=== PATIENT | female | born 1970 | race Caucasian/White ===

== ENCOUNTER 2024-11-28 11:09 | Outpatient (CLI) | payer OTHER, SELFPAY ==
--- OUTSIDE RECORDS SUMMARY | 2024-11-27 11:24 | XMS_ITS | Encounter Summary ---
Author Organization [facility] Address [address] [place] [address] Care Team Providers Care Oracle Manufacturing Consultant Name Role Phone Vel Araujo DO Unavailable [phone] Domo Izquierdo MD Primary Care Provider [phone] Reason for Referral * Radiology Services (Routine) - Closed Specialty Diagnoses / Procedures Referred By Contac t Referred To Contact Mammography Diagnoses Encounter for screening mammogram for malignant neoplasm of breast Procedures Mammo Bilat Screening W Domo Martinez MD [address] [place] [address] Phone: tel: fax: [facility] [address] [place] [address] Phone: tel: fax: Referral ID Status Reason Start Date Expiration Date Visits Re quested Visits Authorized [id number] Closed 11/20/2024 11/20/2025 1 1 Reason for Visit * Radiology Services (Routine) - Closed Specialty Diagnoses / Procedures Referred By Contac t Referred To Contact Mammography Diagnoses Encounter for screening mammogram for malignant neoplasm of breast Procedures Mammo Bilat Screening W Domo Martinez MD [address] [place] [address] Phone: tel: fax: [facility] [address] [place] [address] Phone: tel: fax: Referral ID Status Reason Start Date Expiration Date Visits Re quested Visits Authorized [id number] Closed 11/20/2024 11/20/2025 1 1 Encounter Details Date Type Department Care Team (Latest Contact Info) Description 11/27/2024 11:24 AM CDT - 11/27/2024 11:59 PM CDT Hospital Encounter [address] [address] Domo Izquierdo MD [address] [place] [id number] Discharge Disposition: Home or Self Care Social History Tobacco Use Types Packs/Day Years Used Date Smoking Tobacco: Never Smokeless Tobacco: Never Alcohol Use Standard Drinks/Week Comments Yes 0 (1 standard drink = 0.6 oz pur e alcohol) occas. 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 Answer Date of Assessment Author No 11/01/2022 1:22 PM CDT Ivy Phipps RN * Is person blind or have serious difficulty seeing? Answer Date of Assessment Author No 11/01/2022 1:22 PM CDT Ivy Phipps RN * Does person have serious difficulty walking/climbing stairs? Answer Date of Assessment Author No 11/01/2022 1:22 PM SHEEBAT Ivy Phipps RN * Does person have difficulty dressing/bathing? Answer Date of Assessment Author No 11/01/2022 1:22 PM Ivy Montemayor RN * Does person have difficulty doing errands alone? Answer Date of Assessment Author No 11/01/2022 1:22 PM Ivy Montemayor RN documented as of this encounter Mental Status * Does person have difficulty concentrating/remembering/making decisions? Answer Entry Date Author No 11/01/2022 1:22 PM Ivy Montemayor RN documented in this encounter Medications at Time of Discharge citalopram (CeleXA) 20 MG tabletIndications :Current mild episode of major depressive disorder without prior episode,ROYA (generalized anxiety disorder) Take 1 (one) tablet by mouth once daily 90 tablet 1 05/20/2024 diazePAM (Valium) 5 MG tabletIndications :Anxiety with flying Take one tab about 1 hour prior to flight prn 12 tablet 10/09/2024 fluticasone propionate (FLONASE) 50 MCG/ACT nasal spray [place] 1 (one) spray into the nose as needed 09/20/2020 valACYclovir (Valtrex) 1 GM tablet 03/21/2024 documented as of this encounter Plan of Treatment Upcoming Encounters Date Type Department Care Team (Late st Contact Info) Description 12/28/2024 3:30 PM CDT Office Visit [facility] - Internal Med [address] [facility], [place] [address] Faisal Stewart MD [address] [place] [address] documented as of this encounter Procedures Procedure Name Priority Date/Time Associated Diagnosis Comments MAMMO BILAT SCREENING W DOTTIE Routine 11/27/2024 11:41 AM CDT Encounter for screening mammogram for malignant neoplasm of breast documented in this encounter Results * Mammo Bilat Screening W Dottie (11/27/2024 11:41 AM CDT) Anatomical Region Laterality Modality Breast Bilateral Mammography 11/27/2024 11:5 4 AM CDT Impressions 11/27/2024 11:57 AM CDT IMPRESSION: No mammographic evidence of malignancy. RECOMMENDATION: Screening mammography in one year, pending no interval breast concerns. Patient will receive the examination results by lay letter. OVERALL ASSESSMENT: BI-RADS CATEGORY 1: NEGATIVE. > Interpreting Provider: Micaela Bruner MD, FACR on 11/27/2024 11:57 AM Narrative 11/27/2024 11:57 AM CDT EXAMINATIONS: BILATERAL DIGITAL SCREENING MAMMOGRAM AND BILATERAL BREAST TOMOSYNTHESIS LOCATION: [facility] EXAM DATE: 11/27/2024 HISTORY: Screening. Family history of breast cancer in a paternal aunt at age 55. RISK ASSESSMENT CALCULATION: Patient completed a breast cancer risk assessment during their appointment 11/27/2024. Based upon the information provided and the mammographic breast density, their calculated lifetime risk of developing breast cancer is 11 % (Average Risk <15%; Intermediate / Moderate Risk 15-19; High Risk > 20%). Risk assessment based upon the BRCAPRO model. COMPARISON: Comparison is made to prior mammograms back to 2014. TECHNIQUE: Tomosynthesis (3D) and reconstructed synthetic 2-D images acquired and reviewed in the bilateral craniocaudal and mediolateral oblique projections. A total of 5 images obtained. Transpara AI was utilized in the interpretation. BREAST PARENCHYMAL COMPOSITION: Category B: There are scattered areas of fibroglandular density. FINDINGS: There are no suspicious findings or evidence of malignancy on mammography. There is no significant change from prior. Procedure Note Micaela Bruner MD - 11/27/2024 EXAMINATIONS: BILATERAL DIGITAL SCREENING MAMMOGRAM AND BILATERALBREAST TOMOSYNTHESIS LOCATION: [facility] EXAM DATE: 11/27/2024 HISTORY: Screening. Family history of breast cancer in a paternal auntat age 55. RISK ASSESSMENT CALCULATION: Patient completed a breast cancer risk assessment during their appointment 11/27/2024. Based upon theinformation provided and the mammographic breast density, their calculated lifetime risk of developing breast cancer is 11 % (Average Risk <15%;Intermediate / Moderate Risk 15-19; High Risk > 20%). Risk assessment based upon the BRCAPRO model. COMPARISON: Comparison is made to prior mammograms back to 2014. TECHNIQUE: Tomosynthesis (3D) and reconstructed synthetic 2-D images acquired and reviewed in the bilateral craniocaudal and mediolateral oblique projections. A total of 5 images obtained. Transpara AI was utilized in the interpretation. BREAST PARENCHYMAL COMPOSITION: Category B: There are scattered areas of fibroglandular density. FINDINGS: There are no suspicious findings or evidence of malignancy on mammography. There is no significant change from prior. IMPRESSION: No mammographic evidence of malignancy. RECOMMENDATION: Screening mammography in one year, pending no interval breast concerns. Patient will receive the examination results by lay letter. OVERALL ASSESSMENT: BI-RADS CATEGORY 1: NEGATIVE. > Interpreting Provider: Micaela Bruner MD, FACR on 11/27/2024 11:57 AM Domo Izquierdo MD MAMMO ORDERABLES Final Result documented in this encounter Visit Diagnoses Diagnosis Encounter for screening mammogram for malignant neoplasm of breast Other screening mammogram documented in this encounter Care Teams Oracle Manufacturing Consultant Relationship Specialty Start Date End Date Domo Izquierdo MD [address] [facility] MED [address] [place] [phone] PCP - General Internal Medicine 04/14/24 Vel Araujo DO [address] [facility] [place] [place] [address] Resident - PCP Internal Medicine 12/11/21 documented as of this encounter
--- OUTSIDE RECORDS SUMMARY | 2024-11-28 11:24 | XMS_ITS | Encounter Summary ---
Author Organization [facility] Address [address] [place] [address] Care Team Providers Care Telephone Lines Repairer Name Role Phone Pcp, Unknown Primary Care Provider Unavailabl e Unknown, Provider Primary Care Provider Unavaila Tatianna Barnes APRNFLOATING [facility] FOR CHILDREN Unavailable [phone] Salas Valdes MD Primary Care Provider [phone] Alisha Beck MD Primary Care Provider [phone] Vel Araujo DO Unavailable [phone] Domo Izquierdo MD Primary Care Provider [phone] Reason for Visit * Reason Onset Date Comments Appointment 07/07/2009 Patient was a no show for appointment. Left message. [facility] to reschedule. Encounter Details Date Type Department Care Team (Late st Contact Info) Description 07/07/2009 Telephone [facility] [employer] [facility] [address] [place] [address] [place] [address] [address] Appointment (Patient was a no show for appointment. Left message. [facility] to reschedule.) Social History Tobacco Use Types Packs/Day Years Used Date Smoking Tobacco: Never Alcohol Use Standard Drinks/Week Comments Yes 0 (1 standard drink = 0.6 oz pur e alcohol) occas. 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 Gender Identity Not on file Sexual Orientation Not on file documented as of this encounter Plan of Treatment Upcoming Encounters Date Type Department Care Team (Late st Contact Info) Description 12/28/2024 3:30 PM CDT Office Visit [facility] - Internal Med [address] [facility], [place] [address] Faisal Stewart MD [address] [place] [address] documented as of this encounter Visit Diagnoses Not on filedocumented in this encounter Care Teams Telephone Lines Repairer Relationship Specialty Start Date End Date Pcp, Unknown [place] [address] PCP - General 09/02/09 05/26/13 Unknown, Provider PCP - General 10/06/08 09/01/09 Tatianna Garrison APRN-FIBERGLASS CONTAINER WINDING OPERATOR [address] [address] PCP - Attributed-[employer] 04/04/19 11/23/19 Salas Valdes MD [address] [facility] [address] [place] [address] PCP - General 02/22/20 12/10/21 Alisha Beck MD [address] [place] [address]. [address] [place] [phone] PCP - General 12/11/21 04/13/24 Domo Izquierdo MD [address] [place] [address] DIV OF INT MED [address] [place] [phone] PCP - General Internal Medicine 04/14/24 Vel Araujo DO [address] [place] [address] [place] [address] Resident - PCP Internal Medicine 12/11/21 documented as of this encounter
--- OUTSIDE RECORDS SUMMARY | 2024-11-28 11:24 | XMS_ITS | Encounter Summary ---
Author Organization [facility] Address [address] [place] [place] [address] Care Team Providers Care Inspector [employer] Name Role Phone Vel Araujo DO Unavailable [phone] Domo Izquierdo MD Primary Care Provider Encounter Details Date Type Department Care Team (Latest Contact Info) Description 11/27/2024 Travel Social History Tobacco Use Types Packs/Day Years Used Date Smoking Tobacco: Never Smokeless Tobacco: Never Alcohol Use Standard Drinks/Week Comments Yes 0 (1 standard drink = 0.6 oz pur e alcohol) occas. 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 Answer Date of Assessment Author No 11/01/2022 1:22 PM Ivy Montemayor RN * Is person blind or have serious difficulty seeing? Answer Date of Assessment Author No 11/01/2022 1:22 PM Ivy Montemayor RN * Does person have serious difficulty walking/climbing stairs? Answer Date of Assessment Author No 11/01/2022 1:22 PM Ivy Montemayor RN * Does person have difficulty dressing/bathing? Answer Date of Assessment Author No 11/01/2022 1:22 PM CDT Ivy Phipps RN * Does person have difficulty doing errands alone? Answer Date of Assessment Author No 11/01/2022 1:22 PM SHEEBAT Ivy Phipps RN documented as of this encounter Mental Status * Does person have difficulty concentrating/remembering/making decisions? Answer Entry Date Author No 11/01/2022 1:22 PM Ivy Montemayor RN documented in this encounter Plan of Treatment Upcoming Encounters Date Type Department Care Team (Late st Contact Info) Description 12/28/2024 3:30 PM CDT Office Visit [facility] - Internal Med [address] [place] [address], [place] [phone] Faisal Stewart MD [address] [place] [address] documented as of this encounter Visit Diagnoses Not on filedocumented in this encounter Care Teams Inspector Canvas Products Relationship Specialty Start Date End Date Domo Izquierdo MD [address] [place] [address] OF INT MED [address] [place] [phone] PCP - General Internal Medicine 04/14/24 Vel Araujo DO [facility] [place] [address] Resident - PCP Internal Medicine 12/11/21 documented as of this encounter
--- OUTSIDE RECORDS SUMMARY | 2024-11-28 11:24 | XMS_ITS | Clinical Summary ---
Author Organization [facility] [employer] Address [address] [place] [address] Care Team Providers Care Track Surfacing Machine Operator Name Role Phone Vel Araujo DO Unavailable [phone] Domo Izquierdo MD Primary Care Provider [phone] Source Comments [facility] [employer],non-owned Affiliates and Associated Physician Practices is amultiple site organization consisting of ambulatory clinics and hospital sitesin [place], [place], [place] and [place]. This disclosure is being madepursuant to the Care Everywhere program and may not contain all information available regarding this patient. Last updated 17.[facility] [employer] Allergies No known active allergies Medications * Be aware that medications may not be up to date on this document. Alwaysverify current medications with the patient. fluticasone propionate (FLONASE) 50 MCG/ACT nasal spray [place] 1 (one) spray into the nose as needed 09/20/2020 Active valACYclovir (Valtrex) 1 GM tablet 03/21/2024 Active citalopram (CeleXA) 20 MG tabletIndication s:Current mild episode of major depressive disorder without prior episode,ROYA (generalized anxiety disorder) Take 1 (one) tablet by mouth once daily 90 tablet 1 05/20/2024 Active diazePAM (Valium) 5 MG tabletIndication s:Anxiety with flying Take one tab about 1 hour prior to flight prn 12 tablet 10/09/2024 Active Active Problems Problem Noted Date Diagnosed Date Wellness examination 05/20/2024 Need for vaccination 05/20/2024 Vitamin D deficiency 05/20/2024 Current mild episode of mehnaz r depressive disorder without prior episode 04/14/2024 ROYA (generalized anxiety disorder) 04/14/2024 Anxiety with flying 04/14/2024 Hx of laparoscopic gastric banding 09/27/2021 Hypertension 11/05/2008 Resolved Problems Problem Noted Date Diagnosed Date Resolved Date Actinic keratosis 09/14/2022 05/20/2024 Tinea pedis of both feet 09/14/2022 Nausea 11/05/2008 05/20/2024 Postoperative examination 11/05/2008 Morbid obesity 10/13/2008 05/20/2024 Overview (11/05/2008): S/p Gastric lap band. Preoperative examination 10/13/2008 Encounters Date Type Department Care Team Description 11/27/2024 11:24 AM CDT - 11/27/2024 11:59 PM CDT Hospital Encounter [facility] [address] [place] [id number] Domo Izquierdo MD Discharge Disposition: Home or Self Care 11/27/2024 Travel 10/09/2024 8:30 AM CDT Office Visit [facility] - [facility] [address] [place] [phone] Anxiety with flying (Primary Dx) 10/09/2024 Refill [facility] [address] [place] [phone] Magdalene Galloway, LAB AIDE-CHIP TESTER MEDICATION REFILL 10/09/2024 Travel 10/06/2024 Travel from Last 3 Months Immunizations Immunization Administration Dates Next Due INFLUENZA VACCINE 01/02/2021 INFLUENZA VACCINE, QUADR. (F LUZONE; FLULAVAL; FLUARIX; AFLURIA QUADRIVALENT; 6MO+), 0.5 ML (IIV4) 01/11/2022,02/19/2021 INFLUENZA VACCINE, TRIV. (FL UZONE; FLULAVAL; FLUARIX; AFLURIA TRIVALENT; 6MO+), 0.5 ML (IIV3) 05/20/2024 TDAP (7yrs+) 05/20/2024 Zoster Hzv Vacc Recombinant Inj Im 03/07/2022, iNFLUENZA VACCINE, RECOM-LAWSON, QUADR. (FLUBLOCK QUADRIVALENT; 18Y+) (RIV4) 01/17/2020 Family History Medical History Relation Name Comments Cancer - Breast Paternal Aunt CAD (Coronary Artery Disease) Paternal Grandfather CAD (Coronary Artery Disease) Paternal Grandmother Relation Name Status Comments Paternal Aunt Paternal Grandfather Paternal Grandmother Social History Tobacco Use Types Packs/Day Years Used Date Smoking Tobacco: Never Smokeless Tobacco: Never Tobacco Cessation:Counseling Given: Not Answered Alcohol Use Standard Drinks/Week Comments Yes 0 (1 standard drink = 0.6 oz pur e alcohol) occas. 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 Gender Identity Not on file Sexual Orientation Not on file Last Filed Vital Signs Vital Sign Reading Time Taken Comments Blood Pressure 141/101 10/09/2024 8:19 AM CDT Pulse 93 10/09/2024 8:19 AM CDT Temperature 36.8 C (98.2 F) 10/09/2024 8:19 AM CDT Respiratory Rate 16 05/01/2024 7:47 AM DRAWING TENDER Oxygen Saturation 99% 10/09/2024 8:19 AM CDT Inhaled Oxygen Concentration - - Weight 65.8 kg (145 lb) 11/27/2024 11:41 AM CDT Height 165.1 cm (5' 5) 11/27/2024 11:41 AM CDT Body Mass Index 24.13 11/27/2024 11:41 AM CDT Plan of Treatment Upcoming Encounters Date Type Department Care Team (Late st Contact Info) Description 12/28/2024 3:30 PM CDT Office Visit [facility] - Internal [facility] [address] [facility] [place] [address] Faisal Stewart MD [address] [place] [address] Health Maintenance Due Date Last Done Comments COLOGUARD (AGES 45-75) - COLON CA SCREENING 1970 CT COLONOGRAPHY - COLON CA SCREENING 1970 FIT - COLON CA SCREENING 1970 FLEX SIG - COLON CA SCREENING 1970 HEPATITIS B VACCINE (1 of 3 - 19+ 3-dose series) 1989 PNEUMOCOCCAL VACCINE 50+ (1 of 1 - PCV) 2020 COVID-19 VACCINE (3 - 2024- season) 2024 07/11/2020, 06/20/2020 INFLUENZA VACCINE (#1) 2024 , 01/11/2022, 02/19/2021, Additional history exists MAMMOGRAM 11/27/2026 11/27/2024, 09/01, 09/11/2022, Additional history exists LIPID TESTING 12/27/2026 12/27/2021, 10/20/2008 COLON MONITORING 11/01/2032 11/01/2022, 11/01/2022 COLONOSCOPY - COLON CA SCREENING 11/01/2032 11/01/2022, 11/01/2022 Colorectal Cancer Screening 11/01/2032 DTAP/TDAP/TD VACCINES (2 - Td or Tdap) 05/20/2034 05/20/2024 ZOSTER VACCINE Completed 03/07/2022, 09/27/2021 DEPRESSION SCREENING Completed 04/14/2024, 03/07/2022, 09/27/2021 HEPATITIS C SCREENING Discontinued HIB VACCINE Aged Out No longer eligi ble based on patient's age to complete this topic HIV SCREENING Discontinued HPV VACCINE Aged Out No longer eligi ble based on patient's age to complete this topic MENINGOCOCCAL (Group B) VACCINE SHARED DECISION-MAKING Aged Out No longer eligible based on patient's age to complete this topic MENINGOCOCCAL GROUPS A/C/Y/W VACCINE Aged Out No longer eligible based on patient's age to complete this topic PAP SMEAR Discontinued Procedures Procedure Name Priority Date/Time Associated Diagnosis Comments MAMMO BILAT SCREENING W DOTTIE Routine 11/27/2024 11:41 AM CDT Encounter for screening mammogram for malignant neoplasm of breast ENDOSCOPY, COLON, SCREENING Routine 11/01/2022 12:39 PM CDT LIPID PROFILE Routine 12/27/2021 4:04 PM CDT Preventative health care from Last 3 Months or Most Recently Relevant to Health Maintenance Results * Mammo Bilat Screening W Dottie [...] SCREENING MAMMOGRAM AND BILATERAL BREAST TOMOSYNTHESIS LOCATION: [facility] EXAM DATE: 11/27/2024 HISTORY: Screening. Family history [...] DIGITAL SCREENING MAMMOGRAM AND BILATERALBREAST TOMOSYNTHESIS LOCATION: [facility] EXAM DATE: 11/27/2024 HISTORY: Screening. Family history [...] Domo Izquierdo MD MAMMO ORDERABLES Final Result * ENDOSCOPY, COLON, SCREENING (11/01/2022 12:39 PM CDT) Report Endoscopy POC Endoscopy Department Report _ Patient Name: Nubia Garcia Procedure Date: 11/01/2022 12:39 PM Date of : 1970 Classification: Outpatient Gender: Female Ethnicity: Not or Race: White _ Providers: Eunice Suárez MD Referring MD: Alisha Beck (Referring MD) Procedure: Colonoscopy Indications: Screening for colorectal malignant neoplasm Medications: Propofol per Anesthesia Description of Procedure: Pre-Anesthesia Assessment: - Prior to the procedure, a History and Physical was performed, and patient medications and allergies were reviewed. The patient's tolerance of previous anesthesia was also reviewed. The risks and benefits of the procedure and the sedation options and risks were discussed with the patient. All questions were answered, and informed consent was obtained. Prior Anticoagulants: The patient has taken no anticoagulant or antiplatelet agents. ASA Grade Assessment: II - A patient with mild systemic disease. After reviewing the risks and benefits, the patient was deemed in satisfactory condition to undergo the procedure. After I obtained informed consent, the scope was passed under direct vision. Throughout the procedure, the patient's blood pressure, pulse, and oxygen saturations were monitored continuously. The Colonoscope was introduced through the anus and advanced to the cecum, identified by appendiceal orifice and ileocecal valve. The colonoscopy was performed with ease. The patient tolerated the procedure well. The quality of the bowel preparation was evaluated using the BBPS (Lincoln Bowel Preparation Scale) with scores of: Right Colon = 3, Transverse Colon = 3 and Left Colon = 3 (entire mucosa seen well with no residual staining, small fragments of stool or opaque liquid). The total BBPS score equals 9. The ileocecal valve, appendiceal orifice, and rectum were photographed. Findings: The perianal and digital rectal examinations were normal. Non-bleeding external hemorrhoids were found during retroflexion. The hemorrhoids were small. The exam was otherwise without abnormality on direct and retroflexion views. Estimated Blood Loss: Estimated blood loss: none. Complications: No immediate complications. Impression: - Non-bleeding external hemorrhoids. - The examination was otherwise normal on direct and retroflexion views. - No specimens collected. Recommendation: - Patient has a contact number available for emergencies. The signs and symptoms of potential delayed complications were discussed with the patient. Return to normal activities tomorrow. Written discharge instructions were provided to the patient. - High fiber diet for the rest of the patient's life. - Continue present medications. - Repeat colonoscopy in 10 years for screening purposes. - Return to primary care physician as previously scheduled. Attending Participation: I personally performed the entire procedure. Procedure Code(s): --- Professional --- G0121, Colorectal cancer screening; colonoscopy on individual not meeting criteria for high risk Diagnosis Code(s): --- Professional --- Z12.11, Encounter for screening for malignant neoplasm of colon K64.4, Residual hemorrhoidal skin tags CPT copyright 2021 [employer]. All rights reserved. The codes documented in this report are preliminary and upon analyst market intelligence review may be revised to meet current compliance requirements. Eunice Suárez MD 11/01/2022 1:12:46 PM Note Initiated On: 11/01/2022 12:39 PM Number of Addenda: [id number] [place] [address] PROVATION 11/01/2022 12:3 9 PM CDT us Eunice Suárez MD GI PROCEDURE ORDERABLES Ed ited Result - Final [facility] [employer]OV[facility] * (ABNORMAL) LIPID PROFILE (12/27/2021 4:04 PM CDT) Cholesterol Total 210(H) <200 mg/dL 12/27/2021 5:09 PM CDT [facility] HDL 78 >40 mg/dL 12/27/2021 5:09 PM CDT [facility] Comment: ATP III Classification of HDL Cholesterol: <40 mg/dL: Considered a major risk factor. >60 mg/dL: Considered a negative risk factor. LDL Calculated 107(H) <100 mg/dL 12/27/2021 5:09 PM T [facility] Comment: ATP III Classification of LDL Cholesterol: <100 mg/dL: Optimal 100 - 129 mg/dL: Near Optimal/Above Optimal 130 - 159 mg/dL: Borderline High 160 - 189 mg/dL: High >190 mg/dL: Very High Triglycerides 124 <150 mg/dL 12/27/2021 5:09 PM CDT [facility] Comment: ATP III Classification of Triglycerides: <150 mg/dL: Normal 150 - 199 mg/dL: Borderline High 200 - 400 mg/dL: High >500 mg/dL: Very High Blood BLOOD SPECIMEN / Unknown Lab Venipuncture / Unknown 12/27/2021 4:04 PM CDT 12/27/2021 4:35 PM CDT us Alisha Beck MD LAB - CHEMISTRY ORDERABLE S Final Result [facility] [address] [place] [address], [facility] [phone] from Last 3 Months or Most Recently Relevant to Health Maintenance Insurance [facility] Address: [address] [address] [employer] Advance Directives * Full Code (Latest Code Status on File) Date Activated Date Inactivated Comments 11/05/2008 11:23 AM 11/07/2008 2:27 AM Care Teams Track Surfacing Machine Operator Relationship Specialty Start Date End Date Domo Izquierdo MD [address] [phone] PCP - General Internal Medicine 04/14/24 Vel Araujo DO [address] [facility] [place] [id number] Resident - PCP Internal Medicine 12/11/21
[2024-11-28 12:40] LABS: Hematocrit 38.9 % (37.0-47.0); Hemoglobin 12.7 g/dL (12.0-15.0); Mean Corpuscular HGB Conc 32.6 g/dl (32-36); Mean Corpuscular Hemoglobin 30.7 pg (26-34); Mean Corpuscular Volume 94.0 fl (80-100); Platelet Count Result 237 k/mm3 (150-375); Red Blood Count 4.14 M/mm3 (4.2-5.4); White Blood Count 4.7 K/mm3 (4.5-10.0)
[2024-11-28 13:02] LABS: Albumin Level 4.6 g/dL (3.5-5.1); Anion Gap 7 mmol/L (4-12); Blood Urea Nitrogen 18 mg/dL (7-17); Calcium 9.7 mg/dL (8.4-10.2); Carbon Dioxide 29 mmol/L (22-30); Chloride 101 mmol/L (98-107); Estimated Glomerular Filt Rate 52; Glucose 84 mg/dL (65-110); Potassium 3.8 mmol/L (3.4-5.0); Sodium 137 mmol/L (137-145)
[2024-11-28 13:05] LABS: Iron 106 ug/dL (37-170)
[2024-11-28 13:10] LABS: Prealbumin 31.0 mg/dL (17.6-36.0)
[2024-12-01 18:08] LABS: Vit. B1, Whole Blood 109.3 nmol/L (66.5-200.0)
== END 2024-11-28 11:10 | disposition home or self-care (01) ==
PROVIDERS: Visit Provider Surgery Plastic and Reconstructive Surgery
DX: R63.4 Abnormal weight loss (principal)
CPT/HCPCS: 36415; 80048; 82040; 83540; 84134; 84425; 85027

== ENCOUNTER 2024-11-28 11:27 | Outpatient (CLI) | payer BC, SELFPAY ==
--- OUTSIDE RECORDS SUMMARY | 2001-07-29 09:45 | XMS_ITS | Continuity of Care Document ---
Author Organization [facility] Address [address] [place] [address] [place] [address] Phone Care Team Providers Care Income Tax Investigator Name Role Phone Clement Garber DO Unavailable Unavailable Advance Directives Directive Yes / No Effective Date File Name No Information Encounters Encounter Description Practice Location Reason(s) For Visit Diagnoses Date Provider Providers Copied on Encounter [facility], [address], [place], [place], [id number], [place] tel:[phone] [facility] No Information Jcarlos Hurley. [address] [facility], [place], [address], [place]. tel:[phone] Family History Family Member Type Diagnosis Age At Onset No Information Payers Payer name Insurance type Covered constitution party ID Authoriza tion(s) No Information Social History Type Description Quantity Date Captured Comments Sex Female Smoking Status No Information Chief Complaint And Reason For Visit No Information Reason For Referral Reason For Referral No Information History Of Present Illness Encounter Date Complaint History Of Prese nt Illness No Information Functional Status Date Functional Assessmen t No Information Instructions Date Instruction Additional Infor mation No Information Assessments Type Assessment Date No Information Patient Care Teams Name Effective Dates (start - stop) Status Members No Information
[2024-11-29 06:07] LABS: FSH 73.7 mIU/mL (.)
[2024-12-02 13:08] LABS: Free Testosterone (Direct) 0.7 pg/mL (0.0-4.2)
[2024-12-03 19:08] LABS: Estradiol, Sensitive 8.9 pg/mL (.)
== END 2024-11-28 11:28 | disposition home or self-care (01) ==
LOC: ANHLAB 11:32
PROVIDERS: Visit Provider Chiropractor
DX: N95.1 Menopausal and female climacteric states (principal); N95.8 Other specified menopausal and perimenopausal disorders
CPT/HCPCS: 82670; 83001; 84144; 84270; 84402; 84403

== ENCOUNTER 2025-02-19 11:31 | Outpatient (CLI) | payer OTHER, SELFPAY ==
--- NOTE | 2025-02-19 11:36 | ECG_ITS ---
Test Date: 2025-02-19 11:40:52 Measurements Intervals [place] Rate: 69 P: 52 NE: 145 QRS: 41 QRSD: 82 T: 28 QT: 389 QTc: 419 Interpretive Statements SINUS RHYTHM NORMAL ECG No previous ECG available for comparison Electronically Signed On 02-19-2025 11:51:34 CANAL LOCK TENDER CHIEF OPERATOR by Evan Warren D.O.
[2025-02-19 11:53] LABS: Hematocrit 39.0 % (37.0-47.0); Hemoglobin 12.9 g/dL (12.0-15.0)
--- OUTSIDE RECORDS SUMMARY | 2025-02-19 11:55 | XMS_ITS | Encounter Summary ---
Author Organization [facility] Address [address] [place] [address] Care Team Providers Care Furniture Designer Name Role Phone Pcp, Unknown Primary Care Provider Unavailabl e Unknown, Provider Primary Care Provider Unavaila Tatianna Barnes APRN-[facility] Unavailable [phone] Salas Valdes MD Primary Care Provider [phone] Alisha Beck MD Primary Care Provider [phone] Vel Araujo DO Unavailable [phone] Domo Izquierdo MD Primary Care Provider Faisal Stewart MD Primary Care Provider [phone] Isela Perez DO Unavailable [phone] Reason for Visit * Reason Onset Date Comments Appointment 07/07/2009 Patient was a no show for appointment. Left message. [facility] to reschedule. 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 Gender Identity Not on file Sexual Orientation Not on file documented as of this encounter Plan of Treatment Not on file documented as of this encounter Visit Diagnoses Not on filedocumented in this encounter Care Teams Furniture Designer Relationship Specialty Start Date End Date Pcp, Unknown [place] [address] PCP - General 09/02/09 05/26/13 Unknown, Provider PCP - General 10/06/08 09/01/09 Tatianna Garrison, MANAGED SECURITY SALES CONSULTANT-WHEEL LOADER OPERATOR [address] [address] PCP - Attributed-[employer] 04/04/19 11/23/19 Salas Valdes MD [address] [facility] [place] [phone] PCP - General 02/22/20 12/10/21 Alisha Beck MD [facility] [facility] [place] [phone] PCP - General 12/11/21 04/13/24 Domo Izquierdo MD [address] [address] PCP - General Internal Medicine 04/14/24 12/27/24 Faisal Stewart MD [address] [place] [address] PCP - General Internal Medicine 12/28/24 Vel Araujo DO [address] [facility] [place] [address] Resident - PCP Internal Medicine 12/11/21 Isela Perez DO [address] [facility] [place] [address] Physician Internal Medicine 12/28/24 documented as of this encounter
--- OUTSIDE RECORDS SUMMARY | 2025-02-19 11:55 | XMS_ITS | Clinical Summary ---
Author Organization [facility] [place] Address [address] [place] [address] Care Team Providers Care Candy Attendant Name Role Phone VanVel lynch DO Unavailable [phone] Faisal Stewart MD Primary Care Provider [phone] Isela Perez DO Unavailable [phone] Source Comments [facility],non-owned Affiliates and Associated Physician Practices is amultiple site organization consisting of ambulatory clinics and hospital sitesin [place], [place], [place] and [place]. This disclosure is being madepursuant to the Care Everywhere program and may not contain all information available regarding this patient. Last updated 17.[facility] [place] Allergies No known active allergies Medications * Be aware that medications may not be up to date on this document. Alwaysverify current medications with the patient. fluticasone propionate (FLONASE) 50 MCG/ACT nasal spray Veyo 1 (one) spray into the nose as needed 1 Active valACYclovir (Valtrex) 1 GM tablet 5 Active Progesterone 100 MG capsule TAKE 1 CAPSULE BY MOUTH EVERY DAY AT NIGHT 5 Active diazePAM (Valium) 5 MG tabletIndications :Anxiety with flying Take one tab about 1 hour prior to flight prn 12 tablet 5 Active senna (Senokot) 8.6 MG tabletIndications :Constipation, unspecified constipation type Take 1 (one) tablet by mouth at bedtime 60 tablet 4 5 Active citalopram (CeleXA) 20 MG tabletIndications :Current mild episode of major depressive disorder without prior episode,ROYA (generalized anxiety disorder) TAKE 1 TABLET BY MOUTH EVERY DAY 90 tablet 1 5 Active ferrous sulfate 325 (65 FE) MG tabletIndications :Iron Deficiency,Restle ss Leg Syndrome Take 1 (one) tablet by mouth daily with breakfast Reasons: Iron Deficiency, Restless Leg Syndrome 90 tablet 3 5 Active ascorbic acid (Vitamin C) 500 MG tabletIndications :Iron deficiency anemia, unspecified iron deficiency anemia type Take 1 (one) tablet by mouth once daily 90 tablet 5 Active Active Problems Problem Noted Date Diagnosed [...] Encounters Date Type Department Care Team Description 01/11/2025 Results Follow-Up [facility] - Internal Med [address] [place] [phone] Faisal Stewart MD 01/02/2025 Refill [facility] - Internal Med [address] [place] [address] Domo Izquierdo MD Refill Request 12/28/2024 4:33 PM CDT - 12/28/2024 11:59 PM CDT Hospital Encounter [facility] [address] [place] [phone] Discharge Disposition: Home or Self Care 12/28/2024 3:30 PM CDT Office Visit [facility] - Internal Med [address] [facility] [place] [address] Faisal Stewart MD Encounter to establish care with new doctor (Primary Dx); Anxiety with flying; Restless leg syndrome; Constipation, unspecified constipation type 12/28/2024 Travel 11/27/2024 11:24 AM CDT - 11/27/2024 11:59 PM CDT Hospital Encounter [facility] [address] [place] [address] Domo Izquierdo MD Discharge Disposition: Home or Self Care 11/27/2024 Travel from Last 3 Months Immunizations Immunization Administration Dates Next Due INFLUENZA VACCINE 01/15/2025,01/02/2021 INFLUENZA VACCINE, QUADR. (F LUZONE; FLULAVAL; FLUARIX; AFLURIA QUADRIVALENT; 6MO+), 0.5 ML (IIV4) 01/11/2022,02/19/2021 INFLUENZA VACCINE, TRIV. 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 Gender Identity Not on file Sexual Orientation Not on file Last Filed Vital Signs Vital Sign Reading Time Taken Comments Blood Pressure 132/85 12/28/2024 3:32 PM CDT Pulse 88 12/28/2024 3:32 PM CDT Temperature 36.6 C (97.8 F) 12/28/2024 3:32 PM CDT Respiratory Rate 16 05/01/2024 7:47 AM OPTICAL SCIENTIST Oxygen Saturation 97% 12/28/2024 3:32 PM CDT Inhaled Oxygen Concentration - - Weight 69.9 kg (154 lb) 12/28/2024 3:32 PM CDT Height 165.1 cm (5' 5) 12/28/2024 3:32 PM CDT Body Mass Index 25.63 12/28/2024 3:32 PM CDT Plan of Treatment Health Maintenance Due Date Last Done Comments COLOGUARD (AGES 45-75) - COLON CA SCREENING 1970 CT COLONOGRAPHY - COLON CA SCREENING 1970 FIT - COLON CA SCREENING 1970 FLEX SIG - COLON CA SCREENING 1970 HEPATITIS B VACCINE (1 of 3 - 19+ 3-dose series) 1989 COVID-19 VACCINE (2024- season) 2025 07/11/2020, 06/20/2020 Postponed from 11/02/2024 (Patient Refused) MAMMOGRAM 11/27/2026 11/27/2024, 09/01, 09/11/2022, Additional history exists SCREENING FOR DIABETES 12/29/2027 , 12/28/2024, 03/07/2022, Additional history exists LIPID TESTING 12/28/2029 12/28/2024, 12/03, 10/20/2008 COLON MONITORING 11/01/2032 11/01/2022, 11/01/2022 COLONOSCOPY - COLON CA SCREENING 11/01/2032 11/01/2022, 11/01/2022 Colorectal Cancer Screening 11/01/2032 DTAP/TDAP/TD VACCINES (2 - Td or Tdap) 05/20/2034 05/20/2024 ZOSTER VACCINE Completed 03/07/2022, 09/27/2021 DEPRESSION SCREENING Completed 04/14/2024, 03/07/2022, 09/27/2021 INFLUENZA VACCINE Completed 01/15/2025, , 01/11/2022, Additional history exists PNEUMOCOCCAL VACCINE 50+ Completed 01/15/2025 HEPATITIS C SCREENING Discontinued HIB VACCINE Aged [...] Procedure Name Priority Date/Time Associated Diagnosis Comments IRON + TRANSFERRIN PANEL Routine 12/28/2024 4:37 PM CDT Restless leg syndrome HEMOGLOBIN A1C Routine 12/28/2024 4:37 PM CDT Wellness examination Screening for diabetes mellitus LIPID PROFILE Routine 12/28/2024 4:37 PM CDT Wellness examination VITAMIN D 25-HYDROXY Routine 12/28/2024 4:37 PM CDT Wellness examination Vitamin D deficiency COMPREHENSIVE METABOLIC PANEL Routine 12/28/2024 4:37 PM CDT Wellness examination CBC W AUTO DIFFERENTIAL Routine 12/28/2024 4:37 PM CDT Wellness examination MAMMO BILAT SCREENING W PANTERA Routine 11/27/2024 11:41 AM CDT Encounter for screening mammogram for malignant neoplasm of breast ENDOSCOPY, COLON, SCREENING Routine 11/01/2022 12:39 PM CDT from Last 3 Months or Most Recently Relevant to Health Maintenance Results * HEMOGLOBIN A1C (12/28/2024 4:37 PM CDT) Hemoglobin A1c 4.9 <=5.6 % 12/29/2024 9:28 AM CDT [facility] Estimated Average Glucose 94 mg/dL 12/29/2024 9:28 AM CDT [facility] Comment: HbA1c Interpretation: Normal : < 5.7% Pre-diabetes: 5.7-6.4% Diabetes: Equal to or greater than 6.5% Test results diagnostic of diabetes should be repeated for confirmation. Treatment target values recommended by ADA and other clinical organizations should be used to evaluate metabolic control in patients. Reference: [place] [employer], Standards of Care in Diabetes -2020 In patients 70 years and older consider HbA1c target range of 7.0-7.5% (Reference: Fer Mahan et al. JAMDA. 2012) The Sebia assay for the measurement of HbA1c is a National Glycohemoglobin Standardization Program (NGSP) certified method. Blood BLOOD SPECIMEN / Unknown Lab Venipuncture / Unknown 12/28/2024 4:37 PM CDT 12/28/2024 5:43 PM CDT us Gage Fatima MD LAB - CHEMISTRY ORDERABLES Final Result [address] [address], [facility] [phone] * VITAMIN D 25-HYDROXY (12/28/2024 4:37 PM CDT) Vitamin D, 25 Hydroxy 43.7 30.0 - 80.0 ng/mL 12/28/2024 6:56 PM CDT [facility] Comment: The recommendations for 25-Hydroxy Vitamin D clinical decision points are as follows: Deficient: <20.0 ng/mL Insufficient: 20.0 - 29.9 ng/mL Sufficient: 30.0 - 100.0 ng/mL Potential Toxicity: >100 ng/mL Reference: The Endocrine Society Clinical Practice Guidelines. 2011 If the 25-Hydroxy Vitamin D results are inconsitent with clinical evidence, it is recommended that follow-up testing using a method such as LC/MS/MS be performed to confirm the result. Blood BLOOD SPECIMEN / Unknown Lab Venipuncture / Unknown 12/28/2024 4:37 PM CDT 12/28/2024 5:43 PM CDT us Gage Fatima MD LAB - CHEMISTRY ORDERABLES Final Result [facility] [address] [place] [address], [facility] [phone] * CBC W/ DIFFERENTIAL (12/28/2024 4:37 PM CDT) Pathologist [facility] WBC 6.9 4.0 - 10.7 x10E9/L 12/28/2024 5:47 PM CDT [facility] RBC Count 4.08 3.90 - 5.20 x10E12/L 12/28/2024 5:47 PM [facility] Hemoglobin 13.0 11.9 - 15.8 g/dL 12/28/2024 5:47 PM [facility] Hematocrit 38.2 34.8 - 46.1 % 12/28/2024 5:47 PM [facility] MCV 93.6 80.0 - 98.0 fL 12/28/2024 5:47 PM T [facility] MCH 31.9 26.7 - 33.6 pg 12/28/2024 5:47 PM [facility] MCHC 34.0 31.7 - 36.3 g/dL 12/28/2024 5:47 PM [facility] RDW-CV 13.1 11.3 - 14.8 % 12/28/2024 5:47 PM [facility] Platelet Count 243 150 - 420 x10E9/L 12/28/2024 5:47 PM T [facility] MPV 9.5 7.8 - 11.4 fL 12/28/2024 5:47 PM [facility] Neutrophil % 68.7 41.0 - 74.0 % 12/28/2024 5:47 PM [facility] Lymphocyte % 23.3 17.0 - 47.0 % 12/28/2024 5:47 PM T [facility] Monocyte % 6.1 3.0 - 11.0 % 12/28/2024 5:47 PM CDT [facility] Eosinophil % 0.6 0.0 - 7.0 % 12/28/2024 5:47 PM CDT [facility] Basophil % 1.0 0.0 - 1.6 % 12/28/2024 5:47 PM CDT [facility] Immature Granulocytes % 0.3 0.0 - 1.0 % 12/28/2024 5:47 PM CDT [facility] Neutrophil Absolute 4.76 1.60 - 7.50 x10E9/L 12/28/2024 5:47 PM CDT [facility] Lymphocyte Absolute 1.61 1.00 - 4.40 x10E9/L 12/28/2024 5:47 PM [facility] Monocyte Absolute 0.42 0.15 - 1.00 x10E9/L 12/28/2024 5:47 PM CDT [facility] Eosinophil Absolute 0.04 0.00 - 0.60 x10E9/L 12/28/2024 5:47 PM CDT [facility] Basophil Absolute 0.07 0.00 - 0.13 x10E9/L 12/28/2024 5:47 PM CDT [facility] Blood BLOOD SPECIMEN / Unknown Lab Venipuncture / Unknown 12/28/2024 4:37 PM CDT 12/28/2024 5:43 PM CDT us Gage Fatima MD LAB - HEMATOLOGY ORDERABLES Neeru l Result [facility] [address] [place] [address], [facility] [phone] * (ABNORMAL) COMPREHENSIVE METABOLIC PANEL (12/28/2024 4:37 PM CDT) BUN 18 7 - 26 mg/dL 12/28/2024 7:14 PM CDT [facility] Creatinine 0.86 0.56 - 0.96 mg/dL 12/28/2024 7:14 PM CDT [facility] Sodium 143 136 - 145 mmol/L 12/28/2024 7:14 PM [facility] Potassium 3.8 3.5 - 4.5 mmol/L 12/28/2024 7:14 PM [facility] Chloride 104 98 - 107 mmol/L 12/28/2024 7:14 PM [facility] CO2 28 22 - 29 mmol/L 12/28/2024 7:14 PM [facility] Glucose 90 70 - 99 mg/dL 12/28/2024 7:14 PM [facility] Calcium 9.9 8.4 - 10.2 mg/dL 12/28/2024 7:14 PM [facility] Protein Total 7.8 6.0 - 8.3 g/dL 12/28/2024 7:14 PM [facility] Albumin 4.9 3.4 - 5.0 g/dL 12/28/2024 7:14 PM [facility] Bilirubin Total 0.4 0.2 - 1.2 mg/dL 12/28/2024 7:14 PM [facility] Alkaline Phosphatase 62 40 - 150 U/L 12/28/2024 7:14 PM [facility] ALT 15 5 - 55 U/L 12/28/2024 7:14 PM [facility] AST 20 5 - 34 U/L 12/28/2024 7:14 PM [facility] Anion Gap 11 6 - 16 12/28/2024 7:14 PM [facility] BUN/Creatinine Ratio 21 7 - 23 12/28/2024 7:14 PM [facility] Osmolality Calculated 297(H) 275 - 295 mOsm/kg 12/28/2024 7:14 PM [facility] Albumin/Globulin Ratio 1.7 1.1 - 2.3 12/28/2024 7:14 PM [facility] eGFR by CKD-EPI 80(L) >=90 mL/min/1.7 3 m2 12/28/2024 7:14 PM [facility] Comment:Estimated Glomerular Filtration Rate (eGFR) calculated using the CKD-EPI Creatinine Equation (2020), per the National Kidney Foundation and [place] Society of Nephrology recommendations. Blood BLOOD SPECIMEN / Unknown Lab Venipuncture / Unknown 12/28/2024 4:37 PM CDT 12/28/2024 5:43 PM CDT Gage Fatima MD LAB - CHEMISTRY ORDERABLES Final Result Performing Organization Address City/[facility]/ZIP Co de Phone Number [address] [address], [place] [phone] * (ABNORMAL) IRON + TRANSFERRIN PANEL (12/28/2024 4:37 PM CDT) Pathologist [facility] Iron 64 40 - 150 ug/dL 12/28/2024 6:26 PM CDT [facility] Transferrin 413(H) 174 - 382 mg/dL 12/28/2024 6:26 PM CDT [facility] Transferrin Saturation % 12(L) 16 - 50 % 12/28/2024 6:26 PM CDT [facility] TIBC Calculated 516(H) 240 - 450 ug/dL 12/28/2024 6:26 PM CDT [facility] Blood BLOOD SPECIMEN / Unknown Lab Venipuncture / Unknown 12/28/2024 4:37 PM CDT 12/28/2024 4:59 PM CDT Isela Perez DO LAB - CHEMISTRY ORDERABLES F inal Result Performing Organization Address City/[facility]/ZIP Co de Phone Number [address] [address], [place] [phone] * (ABNORMAL) LIPID PROFILE (12/28/2024 4:37 PM CDT) Cholesterol Total 214(H) <200 mg/dL 12/28/2024 6:38 PM CDT [facility] HDL 78 >40 mg/dL 12/28/2024 6:38 PM CDT [facility] Comment: ATP III Classification of HDL Cholesterol: <40 mg/dL: Considered a major risk factor. >60 mg/dL: Considered a negative risk factor. LDL Calculated 114(H) <100 mg/dL 12/28/2024 6:38 PM CDT [facility] Comment: ATP III Classification of LDL Cholesterol: <100 mg/dL: Optimal 100 - 129 mg/dL: Near Optimal/Above Optimal 130 - 159 mg/dL: Borderline High 160 - 189 mg/dL: High >190 mg/dL: Very High LDL is calculated using the Friedewald equation. Triglycerides 112 <150 mg/dL 12/28/2024 6:38 PM CDT [facility] Comment: ATP III Classification of Triglycerides: <150 mg/dL: Normal 150 - 199 mg/dL: Borderline High 200 - 400 mg/dL: High >500 mg/dL: Very High Blood BLOOD SPECIMEN / Unknown Lab Venipuncture / Unknown 12/28/2024 4:37 PM CDT 12/28/2024 5:43 PM CDT us Gage Fatima MD LAB - CHEMISTRY ORDERABLES Final Result [facility] [address] [place] [address], [facility] [phone] * Mammo Bilat Screening W [place] (11/27/2024 11:41 AM CDT) Anatomical Region Laterality [...] SCREENING MAMMOGRAM AND BILATERAL BREAST TOMOSYNTHESIS LOCATION: [facility] EXAM DATE: 11/27/2024 HISTORY: Screening. Family history [...] There is no significant change from prior. Domo Izquierdo MD MAMMO ORDERABLES Final Result * ENDOSCOPY, COLON, SCREENING (11/01/2022 12:39 PM CDT) Report Endoscopy POC Endoscopy Department Report _ Patient Name: Jayson Garcia Procedure Date: 11/01/2022 12:39 PM Date of : 1970 Classification: Outpatient Gender: Female Ethnicity: Not or Race: White _ Providers: Eunice Suárez MD Referring MD: Alisha Beck (Referring ) Procedure: Colonoscopy Indications: Screening for colorectal malignant [...] bowel preparation was evaluated using the BBPS ([place] Bowel Preparation Scale) with scores of: Right [...] Residual hemorrhoidal skin tags CPT copyright 2021 [employer]. All rights reserved. The codes documented in this report are preliminary and upon bill clerk review may be revised to meet current compliance requirements. Eunice Suárez MD 11/01/2022 1:12:46 PM Note Initiated On: 11/01/2022 12:39 PM Number of Addenda: 0 [facility] [address] [place] [address] [facility] 11/01/2022 12:3 9 PM CDT Eunice Suárez MD GI PROCEDURE ORDERABLES Ed ited Result - Final [facility] from Last 3 Months or Most Recently Relevant to Health Maintenance Insurance ANTHEM ANTHEM Advance Directives * Full Code (Latest Code Status on File) Date Activated Date Inactivated Comments 11/05/2008 11:23 AM 11/07/2008 2:27 AM Care Teams Candy Attendant Relationship Specialty Start Date End Date Faisal Stewart MD [address] [place] [address] PCP - General Internal Medicine 12/28/24 Vel Araujo DO [address] [place] [address] Resident - PCP Internal Medicine 12/11/21 Isela Perez DO [address] [facility] [place] [address] Physician Internal Medicine 12/28/24
== END 2025-02-19 11:32 | disposition home or self-care (01) ==
LOC: ANHSURGERY 11:34
PROVIDERS: Anesthesiology; Visit Provider Surgery Plastic and Reconstructive Surgery
DX: Z41.1 Encounter for cosmetic surgery (principal); Z01.818 Encounter for other preprocedural examination
CPT/HCPCS: 36415; 85014; 85018; 93005

== ENCOUNTER 2025-02-23 03:39 | Day surgery (SDC) | payer OTHER, SELFPAY ==
[2025-02-19 08:07] VITALS: BMI 25.0
--- NOTE | 2025-02-19 08:17 | PC.NURSE ---
[facility] has started construction of its new state of the art ER which will open Spring 2026. With this, we anticipate parking may be a challenge for some our surgical patients and families. Parking spaces are limited but are available for all Surgical, obstetrics, and ER patients sharing this lot. If you arrive and find you are having a hard time finding a parking space, please note that we understand the challenges, please drive around the hospital and park near Hospital Entrance 1. When you enter this entrance, you can ask a volunteer to direct or take you back to the surgical waiting area to check in. We appreciate everyone?s understanding of these expected challenges while we build for your future. Report to the Outpatient Waiting Room, entrance under the green pavilion located off [address], at time _0600_ on date _[id number]_. Planned Procedure Time: _0730_.? Time changes happen often and if your time is changed the preop area will call you the afternoon before. - You and your visitor will be asked to self-screen and do not enter if you have any COVID symptoms. Please call surgeon if you need to reschedule. - A mask is optional within the hospital at this time. Patients may have clear liquids (water, carbonated beverages, clear teas, apple juice) until 3 hours prior to surgery with a maximum of 20 ounces. - No food from midnight until time of surgery and no smoking, or chewing tobacco (or any form of nicotine). No chewing gum, candy or mints. Take only the following medications with a SIP of water on the morning of surgery: ___Citalopram DO NOT STOP ANY OF YOUR OTHER PRESCRIPTION MEDICATIONS PRIOR TO SURGERY EXCEPT THE FOLLOWING Hold all vitamins and supplements for 3 days per anesthesiologist. Medications to discontinue per physician Date to take last dose Please no make-up, nail luxembourgish, hairspray, perfume, deodorant, or body powder the day of surgery.? No jewelry (including any body piercings) or valuables the day of surgery, leave them at home.? Please take a shower or bath the night before, or the morning of, surgery with an antibacterial soap.? Wear comfortable, loose fitting clothing.? - Jewelry must be removed prior to entering the operating room.? Rings and piercings that are not removed may be cut off. - The hospital will not accept responsibility for valuables.? - Please leave all valuables, including medications, at home the day of surgery. If you are going home after surgery, a licensed dedicated driver must drive you home.? - NO public transportation without another adult if you receive anesthesia. - We recommend that an adult stay with you for 24 hours following discharge. - We also recommend that you do not drive, make important decision, drink alcoholic beverages, or take any drugs that were not prescribed by your health care provider for at least 24 hours after your discharge time. Follow any additional instructions given to you from your surgeon. Telephone instructions given to __Jayson___and asked if any additional questions and then verbalized understanding. Patient advised to call surgeon office or pre surgery nurse liaison [phone] if any additional questions.
[2025-02-23] VITALS (11 sets, daily range): BP systolic 104–149; BP diastolic 68–87; PULSE 67–87; RESP 12–16; TEMP 36.2–36.5; O2SAT 93–100; BMI 26.2
--- OUTSIDE RECORDS SUMMARY | 2025-02-23 03:41 | XMS_ITS | Clinical Summary ---
Author Organization [facility] Address [address] [place] [address] Care Team Prov[address] Care Ct Manager Name Role Phone VanVel lynch DO Unavailable [phone] Faisal Stewart MD Primary Care Provider [phone] Isela Perez DO Unavailable [phone] Source Comments [facility],non-owned Affiliates and Associated Physician Practices is amultiple site organization consisting of ambulatory clinics and hospital sitesin [place], [place], [place] and [place]. This disclosure is being madepursuant to the Care Everywhere program and may not contain all information available regarding this patient. Last updated 17.[facility] Allergies No known active allergies Medications * Be aware that medications may not be up to date on this document. Alwaysverify current medications with the patient. fluticasone propionate (FLONASE) 50 MCG/ACT nasal spray Olpe 1 (one) spray into the nose as [...] Follow-Up [facility] [address] [place] [address] Faisal Stewart MD 01/02/2025 Refill [facility] [address] [place] [address] Domo Izquierdo MD Refill Request 12/28/2024 4:33 PM CDT - 12/28/2024 11:59 PM CDT Hospital Encounter [facility] OP DRAW STATION [address] [place] [phone] Discharge Disposition: Home or Self Care 12/28/2024 3:30 PM CDT Office Visit [facility] - [facility] Med [address] 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 Gender Identity Not on file Sexual Orientation Not on file Last Filed Vital Signs Vital Sign Reading Time Taken Comments Blood Pressure 132/85 12/28/2024 3:32 PM CDT Pulse 88 12/28/2024 3:32 PM CDT Temperature 36.6 C (97.8 F) 12/28/2024 3:32 PM CDT Respiratory Rate 16 05/01/2024 7:47 AM HOUSING COORDINATOR Oxygen Saturation 97% 12/28/2024 3:32 PM CDT [...] 4.9 <=5.6 % 12/29/2024 9:28 AM CDT [facility] Estimated Average Glucose 94 mg/dL 12/29/2024 9:28 AM CDT [facility] Comment: HbA1c Interpretation: Normal : < 5.7% Pre-diabetes: 5.7-6.4% Diabetes: Equal to or greater than 6.5% Test results diagnostic of diabetes should be repeated for confirmation. Treatment target values recommended by ADA and other clinical organizations should be used to evaluate metabolic control in patients. Reference: [place] Diabetes Association, Standards of Care in Diabetes [...] LAB - CHEMISTRY ORDERABLES Final Result [address] [address], [facility] [phone] * VITAMIN D 25-HYDROXY (12/28/2024 4:37 PM CDT) Vitamin D, 25 Hydroxy 43.7 30.0 - 80.0 ng/mL 12/28/2024 6:56 PM CDT [facility] Comment: The recommendations for 25-Hydroxy Vitamin [...] MD LAB - CHEMISTRY ORDERABLES Final Result [facility] [address] [place] [address], [facility] [phone] * CBC W/ DIFFERENTIAL (12/28/2024 4:37 PM CDT) Pathologist [facility] WBC 6.9 4.0 - 10.7 x10E9/L 12/28/2024 5:47 PM CDT [facility] RBC Count 4.08 3.90 - 5.20 x10E12/L 12/28/2024 5:47 PM [facility] Hemoglobin 13.0 11.9 - 15.8 g/dL 12/28/2024 5:47 PM [facility] Hematocrit 38.2 34.8 - 46.1 % 12/28/2024 5:47 PM [facility] MCV 93.6 80.0 - 98.0 fL 12/28/2024 5:47 PM T [facility] MCH 31.9 26.7 - 33.6 pg 12/28/2024 5:47 PM [facility] MCHC 34.0 31.7 - 36.3 g/dL 12/28/2024 5:47 PM [facility] RDW-CV 13.1 11.3 - 14.8 % 12/28/2024 5:47 PM [facility] Platelet Count 243 150 - 420 x10E9/L 12/28/2024 5:47 PM T [facility] MPV 9.5 7.8 - 11.4 fL 12/28/2024 5:47 PM [facility] Neutrophil % 68.7 41.0 - 74.0 % 12/28/2024 5:47 PM [facility] Lymphocyte % 23.3 17.0 - 47.0 % 12/28/2024 5:47 PM T [facility] Monocyte % 6.1 3.0 - 11.0 % 12/28/2024 5:47 PM CDT [facility] Eosinophil % 0.6 0.0 - 7.0 % 12/28/2024 5:47 PM CDT [facility] Basophil % 1.0 0.0 - 1.6 % 12/28/2024 5:47 PM CDT [facility] Immature Granulocytes % 0.3 0.0 - 1.0 % 12/28/2024 5:47 PM CDT [facility] Neutrophil Absolute 4.76 1.60 - 7.50 x10E9/L 12/28/2024 5:47 PM CDT [facility] Lymphocyte Absolute 1.61 1.00 - 4.40 x10E9/L 12/28/2024 5:47 PM [facility] Monocyte Absolute 0.42 0.15 - 1.00 x10E9/L 12/28/2024 5:47 PM CDT [facility] Eosinophil Absolute 0.04 0.00 - 0.60 x10E9/L 12/28/2024 5:47 PM CDT [facility] Basophil Absolute 0.07 0.00 - 0.13 x10E9/L 12/28/2024 5:47 PM CDT [facility] Blood BLOOD SPECIMEN / Unknown Lab Venipuncture / Unknown 12/28/2024 4:37 PM CDT 12/28/2024 5:43 PM CDT us Gage Fatima MD LAB - HEMATOLOGY ORDERABLES Neeru l Result [facility] [address] [place] [address], [facility] [phone] * (ABNORMAL) COMPREHENSIVE METABOLIC PANEL (12/28/2024 4:37 PM CDT) BUN 18 7 - 26 mg/dL 12/28/2024 7:14 PM CDT [facility] Creatinine 0.86 0.56 - 0.96 mg/dL 12/28/2024 7:14 PM CDT [facility] Sodium 143 136 - 145 mmol/L 12/28/2024 7:14 PM [facility] Potassium 3.8 3.5 - 4.5 mmol/L 12/28/2024 7:14 PM [facility] Chloride 104 98 - 107 mmol/L 12/28/2024 7:14 PM [facility] CO2 28 22 - 29 mmol/L 12/28/2024 7:14 PM [facility] Glucose 90 70 - 99 mg/dL 12/28/2024 7:14 PM [facility] Calcium 9.9 8.4 - 10.2 mg/dL 12/28/2024 7:14 PM [facility] Protein Total 7.8 6.0 - 8.3 g/dL 12/28/2024 7:14 PM [facility] Albumin 4.9 3.4 - 5.0 g/dL 12/28/2024 7:14 PM [facility] Bilirubin Total 0.4 0.2 - 1.2 mg/dL 12/28/2024 7:14 PM [facility] Alkaline Phosphatase 62 40 - 150 U/L 12/28/2024 7:14 PM [facility] ALT 15 5 - 55 U/L 12/28/2024 7:14 PM [facility] AST 20 5 - 34 U/L 12/28/2024 7:14 PM [facility] Anion Gap 11 6 - 16 12/28/2024 7:14 PM [facility] BUN/Creatinine Ratio 21 7 - 23 12/28/2024 7:14 PM [facility] Osmolality Calculated 297(H) 275 - 295 mOsm/kg 12/28/2024 7:14 PM [facility] Albumin/Globulin Ratio 1.7 1.1 - 2.3 12/28/2024 7:14 PM [facility] eGFR by CKD-EPI 80(L) >=90 mL/min/1.7 3 m2 12/28/2024 7:14 PM [facility] Comment:Estimated Glomerular Filtration Rate (eGFR) calculated using the CKD-EPI Creatinine Equation (2020), per the National Kidney Foundation and [place] Society of Nephrology recommendations. Blood BLOOD SPECIMEN / Unknown Lab Venipuncture / Unknown 12/28/2024 4:37 PM CDT 12/28/2024 5:43 PM CDT Gage Fatima MD LAB - CHEMISTRY ORDERABLES Final Result Performing Organization Address City/[facility]/ZIP Co de Phone Number [address] [address], [place] [phone] * (ABNORMAL) IRON + TRANSFERRIN PANEL (12/28/2024 4:37 PM CDT) Pathologist [facility] Iron 64 40 - 150 ug/dL 12/28/2024 6:26 PM CDT [facility] Transferrin 413(H) 174 - 382 mg/dL 12/28/2024 6:26 PM CDT [facility] Transferrin Saturation % 12(L) 16 - 50 % 12/28/2024 6:26 PM CDT [facility] TIBC Calculated 516(H) 240 - 450 ug/dL 12/28/2024 6:26 PM CDT [facility] Blood BLOOD SPECIMEN / Unknown Lab Venipuncture / Unknown 12/28/2024 4:37 PM CDT 12/28/2024 4:59 PM CDT Isela Perez DO LAB - CHEMISTRY ORDERABLES F inal Result Performing Organization Address City/[facility]/ZIP Co de Phone Number [address] [address], [place] [phone] * (ABNORMAL) LIPID PROFILE (12/28/2024 4:37 PM CDT) Cholesterol Total 214(H) <200 mg/dL 12/28/2024 6:38 PM CDT [facility] HDL 78 >40 mg/dL 12/28/2024 6:38 PM CDT [facility] Comment: ATP III Classification of HDL Cholesterol: <40 mg/dL: Considered a major risk factor. >60 mg/dL: Considered a negative risk factor. LDL Calculated 114(H) <100 mg/dL 12/28/2024 6:38 PM CDT [facility] Comment: ATP III Classification of LDL Cholesterol: <100 mg/dL: Optimal 100 - 129 mg/dL: Near Optimal/Above Optimal 130 - 159 mg/dL: Borderline High 160 - 189 mg/dL: High >190 mg/dL: Very High LDL is calculated using the Friedewald equation. Triglycerides 112 <150 mg/dL 12/28/2024 6:38 PM CDT [facility] Comment: ATP III Classification of Triglycerides: <150 mg/dL: Normal 150 - 199 mg/dL: Borderline High 200 - 400 mg/dL: High >500 mg/dL: Very High Blood BLOOD SPECIMEN / Unknown Lab Venipuncture / Unknown 12/28/2024 4:37 PM CDT 12/28/2024 5:43 PM CDT us Gage Fatima MD LAB - CHEMISTRY ORDERABLES Final Result [facility] [address] [place] [address], [facility] [phone] * Mammo Bilat Screening [place] (11/27/2024 [...] SCREENING MAMMOGRAM AND BILATERAL BREAST TOMOSYNTHESIS LOCATION: [facility] EXAM DATE: 11/27/2024 HISTORY: Screening. Family history [...] Not or Race: White _ Providers: Eunice Suáerz MD Referring MD: Alisha Beck (Referring ) [...] bowel preparation was evaluated using the BBPS ([place] Bowel Preparation Scale) with scores of: Right [...] Residual hemorrhoidal skin tags CPT copyright 2021 [employer]. All rights reserved. The codes documented in this report are preliminary and upon call manager review may be revised to meet current compliance requirements. Eunice Suárez MD 11/01/2022 1:12:46 PM Note Initiated On: 11/01/2022 12:39 PM Number of Addenda: 0 [facility] [address] [place] [address] [facility] 11/01/2022 12:3 9 PM CDT Eunice Suárez MD GI PROCEDURE ORDERABLES Ed ited Result - Final [facility] from Last 3 Months or Most Recently Relevant to Health Maintenance Insurance ANTHEM ANTHEM Advance Directives * Full Code (Latest Code Status on File) Date Activated Date Inactivated Comments 11/05/2008 11:23 AM 11/07/2008 2:[address] Manager Relationship Specialty Start Date End Date Faisal Stewart MD [address] [place] [address] PCP - General Internal Medicine 12/28/24 Vel Araujo DO [address] [place] [address] Resident - PCP Internal Medicine 12/11/21 Isela Perez DO [address] OF [facility] [address] Physician Internal Medicine 12/28/24
--- OUTSIDE RECORDS SUMMARY | 2025-02-23 03:41 | XMS_ITS | Clinical Summary ---
Author Organization [employer] [facility] Address [address] [place] [address] Care Team Providers Care Fertilizer Processing Supervisor Name Role Phone Unavailable Primary Care Provider Unavailabl e Social History Tobacco Use Types Packs/Day Years Used Date Smoking Tobacco: Never Assessed Comments Unknown Sex and Gender Information Value Date Recorded Sex Assigned at Not on file Legal Sex Female 7:57 PM EST Gender Identity Not on file Sexual Orientation Not on file Last Filed Vital Signs Vital Sign Reading Time Taken Comments Blood Pressure - - Pulse 95 03/24/2020 3:09 PM DIVORCE ATTORNEY Temperature 36.8 C (98.2 F) 03/24/2020 3:09 PM DIVORCE ATTORNEY Respiratory Rate - - Oxygen Saturation 98% 03/24/2020 3:09 PM DIVORCE ATTORNEY Inhaled Oxygen Concentration - - Weight - - Height - - Body Mass Index - - Plan of Treatment Not on file Medical Devices Not on file
--- OUTSIDE RECORDS SUMMARY | 2025-02-23 03:41 | XMS_ITS | Encounter Summary ---
Author Organization [facility] Address [address] [place] [address] Care Team Providers Care Merchandise Supervisor Name Role Phone Pcp, Unknown Primary Care Provider Unavailabl e Unknown, Provider Primary Care Provider Unavaila Tatianna Barnes APRN-[facility] Unavailable [phone] Salas Valdes MD Primary Care Provider [phone] Alisha Beck MD Primary Care Provider [phone] Vel Araujo DO Unavailable Domo Izquierdo MD Primary Care Provider [phone] Faisal Stewart MD Primary Care Provider Isela Perez DO Unavailable Reason for Visit * Reason Onset Date Comments Appointment 07/07/2009 Patient was a no show for appointment. Left message. [facility] to reschedule. 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 Gender Identity Not on file Sexual Orientation Not on file documented as of this encounter Plan of Treatment Not on file documented as of this encounter Visit Diagnoses Not on filedocumented in this encounter Care Teams Merchandise Supervisor Relationship Specialty Start Date End Date Pcp, Unknown [place] [address] PCP - General 09/02/09 05/26/13 Unknown, Provider PCP - General 10/06/08 09/01/09 Tatianna Garrison, TICKET WORKER-[employer]CTIONAL TE[employer] [address] [address] PCP - Attributed-[employer] 04/04/19 11/23/19 Salas Valdes MD [address] [facility] [place] [address] PCP - General 02/22/20 12/10/21 Alisha Beck MD [facility] [place] [address] PCP - General 12/11/21 04/13/24 Domo Izquierdo MD [address] [address] PCP - General Internal Medicine 04/14/24 12/27/24 Faisal Stewart MD [address] [place] [address] PCP - General Internal Medicine 12/28/24 Vel Araujo DO [address] [facility] [place] [place] [address] Resident - PCP Internal Medicine 12/11/21 Isela Perez DO [address] OF [facility] [place] [address] Physician Internal Medicine 12/28/24 documented as of this encounter
[2025-02-23] MEDS: LACTATED RINGERS 1,000 ML 30 ML IV CONT ×3 (06:45→12:56)
[2025-02-23] MEDS: TRANEXAMIC ACID 1,000MG/ISO100 1,000 MG/100 ML BAG 200 MG IVPB (06:45)
--- NOTE | 2025-02-23 07:06 | WPDANESEPPF ---
Anes - Initial Pre Proc Eval Procedure: Operation Date: 02/23/25 07:30 Proposed Procedures p Bilateral Breast Reduction, Bra Roll Excision, - Tapan Arndt MD s Left Submandibular Fat Grafting - Tapan Arndt MD Date/Time: 02/23/25 07:06 Surgeon: Tapan Arndt MD Pre Op Diagnosis: macromastia,skin laxity,facial volume loss Patient Data Age: 54 Gender: F Height: 1.65 m Weight: 71.5 kg Last Vital Signs Temp 36.5 C 02/23/25 07:01 Pulse 82 02/23/25 07:01 BP 149/87 H 02/23/25 07:01 Pulse Ox 100 02/23/25 07:01 O2 Del Method Room Air 02/23/25 07:01 Allergies Allergy/AdvReac Type Severity Reaction Status Date / Time No Known Allergies Allergy Mild Verified 02/19/25 08:04 Home Medications ?Medication ?Instructions ?Recorded ?Confirmed ?Type citalopram 20 mg tablet 20 mg PO DAILY 02/19/25 02/23/25 History cream base no.52 (bulk) (HRT Cream 1 applic transdermal DAILY 02/19/25 02/19/25 History transdermal cream) ferrous sulfate-vitamin C ER 65 1 tablet PO DAILY 02/19/25 02/23/25 History mg-150 mg tablet,extended release progesterone micronized 100 mg 100 mg PO QPM 02/19/25 02/19/25 History capsule sennosides 8.6 mg tablet (senna) 8.6 mg PO QPM 02/19/25 02/19/25 History Laboratory Tests 02/23/25 06:19 Cotinine Negative Patient hx anesthesia problems: none Family hx anesthesia problems: none Results Review: All pre-operative results and documents have been reviewed as part of the pre-operative evaluation. [facility] Social History Social History Smoking status: Never smoker Alcohol intake: current Living arrangements: with family Spiritual care concerns: No Anes - Eval Final PreProcedure Day of Procedure 02/23/25 07:06 Patient weight: overweight Heart: regular rate and rhythm Lungs: clear to auscultation Airway: Mallampati scale class II Neurological: alert and oriented Last oral intake: >/= 8 hours ASA classification: II Emergent: no Anesthetic plan: proceed Anesthesia type and monitoring: general ETT and standard monitoring Results Review: All pre-operative results and documents have been reviewed as part of the pre-operative evaluation. Informed Consent: The patient's anesthetic plan and its attendant risks and benefits were discussed with the patient/family/POA. Questions were solicited and answers provided to the satisfaction of the patient/family/POA.
--- NOTE | 2025-02-23 07:28 | WPDHPUPDATE1 ---
History and Physical Update Update Date/Time: 02/23/25 07:28 History and Physical has been reviewed, including an updated exam of the patient. There are NO changes in the patient's condition. Risks, benefits, and alternatives have been discussed and questions answered. Patient agrees to proceed with procedure.
--- NOTE | 2025-02-23 07:29 | P.OP_ITS ---
Procedure Note - Detailed Date of Procedure 02/23/25 Pre-op Diagnosis macromastia,skin laxity,facial volume loss Post-op Diagnosis Same Procedure Performed 1. Bilateral reduction mammaplasty 2. Bra roll excision 3. Fat grafting left submandibular (pre-jowl) Surgeon Tapan Arndt MD Anesthesia General Findings Vaser: 60% Vaser Back: 7:04 Right lateral breast: 1:34 Left lateral breast: 1:42 Tumescent: Posterior: 1,200 cc Anterior: 800 cc Lipoaspirate: 1,200 cc Fat graftin cc left submandibular / pre-jowl Tissue removed: Right: 303.2 grams Left: 304 grams Description of Procedure She is here today for the above. Previously and again today the risks, benefits, alternatives were discussed in extensive detail. I wanted her to be very realistic about the risks involved as well as expectations. We discussed aftercare and what to monitor for. She understands we can never guarantee final breast size and there will always be asymmetry. I was very upfront and honest about the risks of sensation change and even nipple loss (). Made sure answered all of her questions to her satisfaction today and consent was obtained. She was marked in the preoperative holding area with their verification. The patient was taken to the operating room placed supine on the operating table. Anesthesia was provided by anesthesiology. Placed in a prone position to protect from injury. She was prepped and draped in a standard sterile fashion. A surgical time-out was taken. Posterior Stab incisions were made and I tumesced with a tumescent solution. Once adequate time for hemostasis first suction lipectomy was completed with hand lipo on 10cc syringes and 3mm harvest cannula. Once enough volume for fat grafting syringes were placed vertical for separation on the back table. Protective port sites were placed and wet laps used to protect the skin. Once adequate time was allowed for hemostasis Vaser was utilized in a fanning manner to protect from thermal injury. A 4mm marjorie cannula were utilized to com plete suction lipectomy in multiple planes and passes. Suction lipectomy continued to result based on pre-operative planning, intra-operative observation, and rolling pinch test which were in full agreement. A 10 blade was used to make the upper incision for bra roll excision and dissection was continued inferior elevating what we necessary for closure. This was closed with 3 point suture with 2-0 Vicryl followed 2-0 PDO strattafix, 3-0 stratafix ,running subcuticular 4-0 Monocryl, and tissue glue. Laterally roxanna were placed for turning. Breast Patient was moved supine with care taken to protect from injury. Re-prepped and draped in a standard sterile fashion. Stab incision was made and infiltrated with a tumescent solution. I marked out the nipple-areolar complex at 42 mm. I then de-epithelialized the pedicle. The pedicle was well left well more than 2 cm in thickness. I then removed the inferior portion of the breast as well as the central keel to get shape based on preoperative planning. At this point copiously irrigated with saline solution and verified a strict hemostasis. I reapproximated the pillars using a 2-0 PDS. I tailor tacked the breast into place with roxanna. She was placed in a sitting position. I verified the nipple-areolar complex position based on preoperative markings, intraoperative measurements, and observation which were in full agreement. This nipple-areolar complex was marked at 38 mm in size. Protective port sites were placed and wet laps used to protect the skin. Once adequate time was allowed for hemostasis Vaser was utilized in a fanning manner to protect from thermal injury laterally. A 4mm marjorie cannula were utilized to complete suction lipectomy in multiple planes and passes. Suction lipectomy continued to result based on pre-operative planning, intra-operative observation, and rolling pinch test which were in full agreement. I then placed supine and de-epithelialized the pedicle. Nipple-areolar complex was inset with 3-0 Monocryl. I closed IMF deep with 2-0 PDS. I closed the vertical incision with 3-0 Monocryl in the IMF with 3-0 stratafix. 10 blade was utilized to connect the IMF incision to bra roll excision. Closed with 2-0 PDS, 3-0 Stratafix. Then everything was closed using a running subcuticular 4-0 Monocryl and tissue glue. Brijjits placed on the vertical. Fat grafting left submandibular Fat had been and I utilized the central portion which was passed through tulip microfat grafting reduction to 1.2 microns. 18 guage needle used to make stab incisions as needed. Fat infiltrated with a 0.9mm fat grafting cannula in multiple plans / passes along periosteum to desired volume. A dressing was placed followed by surgical bra. Patient was awoke and taken to PACU without difficulty. All instrument sponge counts were correct at the end of the case. Estimated Blood Loss 40 Drains No Packing No Pathology Yes (Bilateral breast tissue) Complications No immediate complications Condition Stable Disposition PACU
[2025-02-23] MEDS: SCOPOLAMINE 1 MG PATCH 1 PATCH TRANSDERM (07:31)
[2025-02-23] MEDS: ceFAZolin 2 GM in SODIUM CHLORIDE 0.9% IV 50 ML 100 ML IVPB (07:34)
[2025-02-23] MEDS: LACTATED RINGERS IRRIG 1,000 ML, LIDOCAINE 1% LOCAL INJ 50 ML, EPINEPHrine HCL INJ 1 MG... INFILTRATE (08:08)
[2025-02-23] MEDS: oxyCODONE HCL (*CRX) 5 MG TAB IR PO (13:30)
[2025-02-23] MEDS: fentaNYL CITRATE INJ (*CRX) 100 MCG/2 ML VIAL 25 MCG IV PUSH ×3 (14:08→14:40)
== END 2025-02-23 15:08 | disposition home or self-care (01) ==
PROVIDERS: Visit Provider Surgery Plastic and Reconstructive Surgery
PROC: 0HBV0ZZ Excision of Bilateral Breast, Open Approach (ICD-10-PCS; CPT 19318; principal; 2025-02-23 07:30)
PROC: (CPT 15769; 2025-02-23 07:30)
DX: Z41.1 Encounter for cosmetic surgery (principal); N62 Hypertrophy of breast; L57.4 Cutis laxa senilis
CPT/HCPCS: 19318; 15839; 15877; 80307; J0690; A9270; J0166; J1100; J1171; J2003; J2250; J2405; J2704; J3010; J3290; J7030; J7120